=== PATIENT | female | born 1965 | race Caucasian/White ===

== ENCOUNTER 2021-07-02 18:49 | Inpatient (IN) | payer MEDICARE, OTHER ==
[~2021-07-02] VITALS: Ht 157.5 cm; Wt 51.9 kg
[2021-07-02] MEDS ORDERED: MAG HYDROX/AL HYDROX/SIMETH 30 ML UDC PO PRN (19:30)
[2021-07-02] MEDS ORDERED: ACETAMINOPHEN 325 MG TABLET PO PRN (19:30)
[2021-07-02] MEDS ORDERED: ONDANSETRON HCL/PF 4 MG/2 ML VIAL IVP PRN (19:30)
[2021-07-02] MEDS ORDERED: Z GUARD REMEDY 2 OZ OINT TP PRN (19:30)
[2021-07-02] MEDS ORDERED: MAGNESIUM HYDROXIDE 30 ML UDC PO PRN (19:30)
[2021-07-02] MEDS ORDERED: IV NS 0.9% 1,000 ML IV PRN (19:30)
--- NOTE | 2021-07-02 19:51 | NUR ---
REFUGIOID SWABBED, SENT TO LAB.
--- NOTE | 2021-07-02 19:51 | NUR ---
LAZARO JOHNSON, UNABLE TO COLLECT BLOOD, WILL CALL LAB TO DRAW.
[2021-07-02 20:13] LABS: HEMATOCRIT 38 % (33-45)
[2021-07-02 20:16] LABS: BASOPHILS # (AUTO) 0.1 K/uL (0.0-0.2); BASOPHILS % (AUTO) 1.1 % (0.0-2.0); EOSINOPHILS % (AUTO) 0.8 % (0.0-6.0); HEMOGLOBIN 12.5 g/dL (11.5-14.8); LYMPHOCYTES % (AUTO) 38.5 % (20.0-44.0); MEAN CORPUSCULAR HGB CONC 33 g/dl (31.0-36.0); MEAN CORPUSCULAR VOLUME 92 fL (82-100); MONOCYTES # (AUTO) 0.9 K/uL (0.1-1.30); MONOCYTES % (AUTO) 9.2 % (2.0-12.0); NEUTROPHILS # (AUTO) 5.2 K/uL (1.8-8.9); NEUTROPHILS % (AUTO) 50.4 % (43.0-81.0); PLATELET COUNT (AUTO) 264 K/uL (150-450); RED BLOOD CELL COUNT(AUTO) 4.18 MIL/uL (4.0-5.2); WHITE BLOOD COUNT (AUTO) 10.3 K/uL (4.3-11.0)
[2021-07-02 20:20] LABS: CALCIUM, SERUM 8.8 mg/dL (8.5-10.1); CREATININE 0.8 mg/dL (0.6-1.3); POTASSIUM 3.3 mmol/L (3.5-5.1)
--- NOTE | 2021-07-02 21:10 | NUR ---
BED 315-2
--- NOTE | 2021-07-02 21:37 | NUR ---
REPORT GIVEN TO MOLLY CRUZ.
--- NOTE | 2021-07-02 21:42 | NUR ---
PT WAS TRANSFERRED TO THIRD FLOOR INSTABLE CONDITION
[2021-07-02 22:00] VITALS: BP 112/63
--- NOTE | 2021-07-02 22:00 | NUR ---
RECEIVED PATIENT FROM ER VIA GURNEY. PATIENT IS AWAKE, A/O X 2, WITH SPECIAL NEEDS AND HAS NOT SHOWN SIGNS OF PAIN AND SOB. NOT IN DISTRESS. WITH IV ACCESS ON LEFT HAND, SALINE LOCKED, FLUSHED, PATENT AND INTACT. WILL CONTINUE TO MONITOR.
--- NOTE | 2021-07-02 22:05 | NUR ---
MS RN NOTES SKIN ASSESSMENT IS DONE. SAFETY MEASURES IN PLACED. CALL LIGHT WITHIN REACH. BED ON LOWEST, LOCKED POSITION.
--- NOTE | 2021-07-02 23:30 | NUR ---
RN NOTES PATIENT IS A FALL RISK AND TRYING TO GET OUT OF BED, GOT RESTRAINTS ORDER FROM DR. HAWLEY, ORDER NOTED AND CARRIED OUT
--- NOTE | 2021-07-03 00:30 | NUR ---
MS HORTICULTURAL THERAPIST NOTES STARTED IVF 0.9% NS 1,000ML AT 75ML/HR AT LEFT HAND.
[2021-07-03] MEDS ORDERED: DIVA-76 PO (04:13)
[2021-07-03] MEDS ORDERED: NA P133E RC (04:13)
[2021-07-03] MEDS ORDERED: OLAN2.5T3 PO (04:13)
[2021-07-03] MEDS ORDERED: LEVO50TA8 PO (04:13)
[2021-07-03] MEDS ORDERED: BISA-79 PR (04:17)
[2021-07-03] MEDS ORDERED: MAGN400O6 PO (04:58)
[2021-07-03] MEDS ORDERED: ACET-868 PO (05:00)
[2021-07-03 06:00] LABS: BASOPHILS % (AUTO) 0.7 % (0.0-2.0); EOSINOPHILS % (AUTO) 1.2 % (0.0-6.0); HEMATOCRIT 38 % (33-45); HEMOGLOBIN 12.9 g/dL (11.5-14.8); LYMPHOCYTES # (AUTO) 2.7 K/uL (0.8-4.8); LYMPHOCYTES % (AUTO) 37.3 % (20.0-44.0); MEAN CORPUSCULAR HGB CONC 34 g/dl (31.0-36.0); MEAN CORPUSCULAR VOLUME 90 fL (82-100); MONOCYTES # (AUTO) 0.7 K/uL (0.1-1.30); MONOCYTES % (AUTO) 9.9 % (2.0-12.0); NEUTROPHILS # (AUTO) 3.6 K/uL (1.8-8.9); NEUTROPHILS % (AUTO) 50.9 % (43.0-81.0); PLATELET COUNT (AUTO) 249 K/uL (150-450); WHITE BLOOD COUNT (AUTO) 7.1 K/uL (4.3-11.0)
--- NOTE | 2021-07-03 06:00 | NUR ---
RN NOTES GOT A SITTER ORDER FROM DR. HAWLEY, ORDER NOTED AND CARRIED OUT
[2021-07-03 06:10] LABS: CALCIUM, SERUM 8.1 mg/dL (8.5-10.1); CREATININE 0.7 mg/dL (0.6-1.3); MAGNESIUM 2.4 mg/dL (1.8-2.4); PHOSPHORUS 3.4 mg/dL (2.5-4.9)
--- NOTE | 2021-07-03 06:21 | NUR ---
RN NOTES NOTICED PATIENT IS ALWAYS SLEEPY, CHECKED PATIENT BLOOD [id number], GAVE CHOCOLATE PUDDING AND APPLE SAUCE
--- NOTE | 2021-07-03 06:22 | NUR ---
RN NOTES AWAKE, MORNING CARE RENDERED, BILATERAL UPPER EXTREMITIES HAS GOOD CIRCULATION, NOT IN DISTRESS, NO APIN NOTED, MORNING CARE RENDERED, [id number], PT. NEEDS ATTENDED
[2021-07-03 08:00] VITALS: BP 91/65
[2021-07-03] MEDS ORDERED: NA PHOS,M-B/NA PHOS,DI-BA 1 EA ENEMA RC PRN (08:00)
[2021-07-03] MEDS ORDERED: IV D5/0.45 NACL 1,000 ML IV PRN (09:00)
[2021-07-03] MEDS ORDERED: MAGNESIUM HYDROXIDE 30 ML UDC PO SCH (09:00)
[2021-07-03] MEDS: DIVALPROEX SODIUM 250 MG TABLET.DR PO SCH ×3 (10:22→17:00)
[2021-07-03] MEDS: LEVOTHYROXINE SODIUM 50 MCG TABLET PO SCH (10:22)
[2021-07-03 16:00] VITALS: BP 84/52
[2021-07-03 20:00] VITALS: BP 104/54
[2021-07-03] MEDS: OLANZAPINE 2.5 MG TABLET PO SCH (21:54)
[2021-07-04 06:01] LABS: BASOPHILS % (AUTO) 0.3 % (0.0-2.0); EOSINOPHILS % (AUTO) 1.3 % (0.0-6.0); HEMATOCRIT 41 % (33-45); HEMOGLOBIN 13.8 g/dL (11.5-14.8); LYMPHOCYTES # (AUTO) 3.3 K/uL (0.8-4.8); LYMPHOCYTES % (AUTO) 44.8 % (20.0-44.0); MEAN CORPUSCULAR HGB CONC 34 g/dl (31.0-36.0); MEAN CORPUSCULAR VOLUME 91 fL (82-100); MONOCYTES # (AUTO) 0.6 K/uL (0.1-1.30); MONOCYTES % (AUTO) 8.9 % (2.0-12.0); NEUTROPHILS # (AUTO) 3.2 K/uL (1.8-8.9); NEUTROPHILS % (AUTO) 44.7 % (43.0-81.0); PLATELET COUNT (AUTO) 242 K/uL (150-450); RED BLOOD CELL COUNT(AUTO) 4.53 MIL/uL (4.0-5.2); WHITE BLOOD COUNT (AUTO) 7.3 K/uL (4.3-11.0)
--- NOTE | 2021-07-04 06:30 | NUR ---
MS RN NOTES AWAKE & RESPONSIVE. NOT IN ANY DISTRESS. NO SOB NOTED. DENIES ANY PAIN OR DISCOMFORT AT THIS TIME. WITH IVF INFUSING WELL. AM CARE DONE. MONITORED ACCORDINGLY. CALL LIGHT WITHIN REACH. BED IN LOWEST POSITION. SR UP X 3 WITH BED ALARM ON FOR SAFETY. WILL ENDORSE TO NEXT SHIFT.
[2021-07-04 06:35] LABS: CALCIUM, SERUM 8.2 mg/dL (8.5-10.1); CREATININE 0.7 mg/dL (0.6-1.3); MAGNESIUM 2.3 mg/dL (1.8-2.4); POTASSIUM 4.3 mmol/L (3.5-5.1)
[2021-07-04 06:48] LABS: THYROID STIMULATING HORMONE 0.831 uIU/mL (0.358-3.74)
--- NOTE | 2021-07-04 07:56 | NUR ---
MS/RN OPENING NOTES RECEIVED PATIENT AWAKE ALERT AND ORIENTED X 1. PATIENT IS ON ROOM AIR SATURATING WELL. PATIENT IN NO APPARENT RESPIRATORY DISTRESS NOTED. NO COMPLAINED OF PAIN NOTED AT THIS TIME. WILL CONTINUE TO MONITOR.
[2021-07-04 08:00] VITALS: BP 103/64
[2021-07-04] MEDS: DIVALPROEX SODIUM 250 MG TABLET.DR PO SCH ×3 (08:46→17:18)
[2021-07-04] MEDS: LEVOTHYROXINE SODIUM 50 MCG TABLET PO SCH (08:46)
[2021-07-04 16:00] VITALS: BP 113/71
--- NOTE | 2021-07-04 16:15 | NUR ---
MS/RN NOTES ITS OKAY NO IV ACCESS PER DR. GILLESPIE PATIENT WILL DISCHARGE TOMORROW.
[2021-07-04] MEDS: ENSURE ENLIVE 237 ML LIQUID (VANILLA) PO SCH (17:18)
--- NOTE | 2021-07-04 19:25 | NUR ---
MS/RN CLOSING PATIENT IS ON BED ALERT AND ORIENTED X1. PATIENT IS ON ROOM AIR SATURATION 100%.. PATIENT IN NO APPARENT RESPIRATORY DISTRESS NOTED. NO COMPLAINED OF PAIN NOTED AT THIS TIME. SEEN AND EXAMINED BY MD WITH ORDERS MADE AND CARRIED OUT ALL DUE MEDICATIONS WAS GIVEN. NO IV ACCESS.SAFETY PRECAUTION WAS IN PLACED, BED IN LOWEST POSITION AND LOCKED X2. CALL LIGHT WITHIN REACH. PATIENT WITH 1:1 SITTER. WILL ENDORSED TO GROUP DYNAMICS INSTRUCTOR FOR BRIGID.
[2021-07-04 20:00] VITALS: BP 91/59
[2021-07-04] MEDS: OLANZAPINE 2.5 MG TABLET PO SCH (21:23)
[2021-07-04] MEDS ORDERED: MIRTAZAPINE 15 MG TABLET PO SCH (22:00)
[2021-07-05] VITALS: BP 106/62
[2021-07-05 03:26] VITALS: BP 162/61
--- NOTE | 2021-07-05 08:00 | NUR ---
RN OPENING NOTE PT IS AWAKE IN BED. ON RA WITH NO SOB OR RESPIRATORY DISTRESS PRESENT. A/O X1 AND [place] SPEAKING. NO COMPLAINT OF PAIN OR NAUSEA. NO S/S OF PAIN OR NAUSEA. NO SUPPORT TECHNICIAN PRESENT. NO EDEMA PRESENT. INCONTINENT WITH DIAPER PRESENT. ON BEDREST. ON REGULAR DIET. NO IV ACCESS, MD AND CN AWARE. NO IV MEDS ORDERED. LABS AND ORDERS REVIEWED. SAFETY MEASURES IN PLACE. SIDE RAILS RAISED. BED LOWERED. CALL LIGHT WITHIN REACH. WILL CONTINUE TO MONITOR.
[2021-07-05] MEDS: DIVALPROEX SODIUM 250 MG TABLET.DR PO SCH ×2 (08:42→12:03)
[2021-07-05] MEDS: LEVOTHYROXINE SODIUM 50 MCG TABLET PO SCH (08:43)
[2021-07-05] MEDS: ENSURE ENLIVE 237 ML LIQUID (VANILLA) PO SCH (08:44)
[2021-07-05] MEDS ORDERED: MIRT-121 PO (08:57)
--- NOTE | 2021-07-05 15:06 | NUR ---
PHYSICIAN ASSISTANT SURGERY NOTE PT DISCHARGED TO [facility], REPORT GIVEN TO MAURICIO BARNES. EXITCARE EDUCATION UTILIZED AND GIVEN TO EMT. BELONGINGS CHECKED AND GIVEN TO EMT. NO IV LINES PRESENT. ID BAND REMOVED. SKIN PROBLEMS PRESENT AND PICTURES TAKEN PRIOR TO D/C. PT REFUSED SACRAL SKIN ASSESSMENT ON D/C. PRESCRIPTIONS CHECKED AND MED RECON GIVEN TO EMT. PT TRANSPORTED VIA AMBULANCE ACCOMPANIED BY 2 CLEANING MATRON.
== END 2021-07-05 15:15 | DRG 640 ==
LOC: ER 19:12 → MED 21:18
PROVIDERS: ADMIT Internal Medicine; ATTEND Internal Medicine
DX: R62.7 Adult failure to thrive (principal); G93.41 Metabolic encephalopathy; J98.11 Atelectasis; G10 Huntington's disease; E16.2 Hypoglycemia, unspecified; F31.9 Bipolar disorder, unspecified; F41.9 Anxiety disorder, unspecified; Z20.822 Contact with and (suspected) exposure to COVID-19; Z86.16 Personal history of COVID-19; F25.9 Schizoaffective disorder, unspecified; G24.9 Dystonia, unspecified; E03.9 Hypothyroidism, unspecified; E87.6 Hypokalemia
CPT/HCPCS: 36415; 71045-TC; 80048-TC; 82962-TC; 83735-TC; 84100-TC; 84443-TC; 85025-TC; 87081-TC; 97112-TC; 97116-TC; 97530-TC; C9803; G0378; J7030

== ENCOUNTER 2022-11-18 17:07 | Inpatient (IN) | payer MEDICARE, OTHER ==
[~2022-11-18] VITALS: Ht 160 cm; Wt 45.4 kg
[~2022-11-18 17:07] MED LIST: ACET-868 PO; DIVA-76 PO; LEVO50TA8 PO; MAGN400O6 PO; MIRT-121 PO; NA P133E RC; OLAN2.5T3 PO
[2022-11-18] MEDS ORDERED: MIRT7.5T10 PO (18:17)
[2022-11-18] MEDS ORDERED: BENZ1TAB7 PO (18:17)
[2022-11-18] MEDS ORDERED: MAG30ORA GT (18:17)
[2022-11-18] MEDS ORDERED: AMIN30LI27 PO (18:17)
[2022-11-18] MEDS ORDERED: BISA10SU11 RC (18:17)
[2022-11-18] MEDS ORDERED: MULT-447 PO (18:17)
[2022-11-18] MEDS ORDERED: BUSP5TAB3 PO (18:17)
[2022-11-18] MEDS ORDERED: DOCU-141 PO (18:17)
[2022-11-18 18:29] LABS: BASOPHILS % (AUTO) 0.6 % (0.0-2.0); EOSINOPHILS % (AUTO) 1.5 % (0.0-6.0); HEMATOCRIT 38 % (33-45); HEMOGLOBIN 12.2 g/dL (11.5-14.8); LYMPHOCYTES # (AUTO) 3.1 K/uL (0.8-4.8); LYMPHOCYTES % (AUTO) 38.8 % (20.0-44.0); MEAN CORPUSCULAR HGB CONC 32 g/dl (31.0-36.0); MEAN CORPUSCULAR VOLUME 92 fL (82-100); MONOCYTES # (AUTO) 0.7 K/uL (0.1-1.30); MONOCYTES % (AUTO) 8.4 % (2.0-12.0); NEUTROPHILS # (AUTO) 4.1 K/uL (1.8-8.9); NEUTROPHILS % (AUTO) 50.7 % (43.0-81.0); PLATELET COUNT (AUTO) 228 K/uL (150-450); RED BLOOD CELL COUNT(AUTO) 4.13 MIL/uL (4.0-5.2); WHITE BLOOD COUNT (AUTO) 8.1 K/uL (4.3-11.0)
[2022-11-18 19:14] LABS: ALANINE AMINOTRANSFERASE 11 U/L (12-78); ALBUMIN 3.5 g/dL (3.4-5.0); ALCOHOL, BLOOD < 3 mg/dL (0-0); ALKALINE PHOSPHATASE 84 U/L (46-116); ASPARTATE AMINOTRANSFERASE 17 U/L (15-37); BILIRUBIN,DIRECT 0.1 mg/dL (0.0-0.2); BILIRUBIN,TOTAL 0.2 mg/dL (0.2-1.0); CALCIUM, SERUM 9.3 mg/dL (8.5-10.1); CARBON DIOXIDE 29 mmol/L (21-32); CHLORIDE 105 mmol/L (98-107); CREATININE 0.8 mg/dL (0.6-1.3); GLUCOSE 106 mg/dL (74-106); POTASSIUM 4.8 mmol/L (3.5-5.1); SODIUM SERUM 138 mmol/L (136-145); TOTAL PROTEIN, SERUM 6.9 g/dL (6.4-8.2); UREA NITROGEN, BLOOD 22 mg/dL (7-18)
[2022-11-18 19:29] LABS: ACETAMINOPHEN 0 ug/ml (10-30)
[2022-11-19 01:50] VITALS: BP 115/58
[2022-11-19] MEDS ORDERED: TEMAZEPAM 7.5 MG CAPSULE PO PRN (02:00)
[2022-11-19] MEDS ORDERED: MAGNESIUM HYDROXIDE 30 ML UDC PO PRN (02:00)
[2022-11-19] MEDS ORDERED: MAG HYDROX/AL HYDROX/SIMETH 30 ML UDC PO PRN (02:00)
[2022-11-19] MEDS ORDERED: BLOOD SUGAR DIAGNOSTIC 1 EACH STRIP IN ONE (02:00)
[2022-11-19] MEDS ORDERED: ACETAMINOPHEN 325 MG TABLET PO PRN (02:00)
[2022-11-19 08:00] VITALS: BP 98/64
[2022-11-19] MEDS ORDERED: DIVALPROEX SODIUM 250 MG TABLET.DR PO SCH (15:30)
[2022-11-19 16:00] VITALS: BP 93/61
[2022-11-19] MEDS ORDERED: BISACODYL SUPP (10 MG) 10 MG/SUPP.RECT SUPP.RECT RC PRN (16:30)
[2022-11-19] MEDS: DIVALPROEX SODIUM 125 MG CAP.SPRINK PO SCH ×3 (17:18→22:00)
[2022-11-19] MEDS: OLANZAPINE 2.5 MG TABLET PO SCH (17:18)
[2022-11-19] MEDS: DOCUSATE SODIUM 100 MG CAPSULE PO SCH (17:18)
[2022-11-19 20:10] VITALS: BP 91/45
[2022-11-19] MEDS ORDERED: DIVALPROEX SODIUM 500 MG TABLET.DR PO SCH (22:00)
[2022-11-20 08:00] VITALS: BP 99/64
[2022-11-20] MEDS: OLANZAPINE 2.5 MG TABLET PO SCH ×3 (08:21→17:30)
[2022-11-20] MEDS: MULTIVIT W/MINERALS 1 TAB TABLET PO SCH (08:21)
[2022-11-20] MEDS: LEVOTHYROXINE SODIUM 50 MCG TABLET PO SCH (08:21)
[2022-11-20] MEDS: DOCUSATE SODIUM 100 MG CAPSULE PO SCH ×2 (08:21→17:30)
[2022-11-20] MEDS: DIVALPROEX SODIUM 125 MG CAP.SPRINK PO SCH ×3 (08:22→21:47)
[2022-11-20 08:49] LABS: ALBUMIN 3.2 g/dL (3.4-5.0); BILIRUBIN,TOTAL 0.3 mg/dL (0.2-1.0); CALCIUM, SERUM 9.1 mg/dL (8.5-10.1); CREATININE 0.8 mg/dL (0.6-1.3); TOTAL PROTEIN, SERUM 6.4 g/dL (6.4-8.2)
[2022-11-20 08:58] LABS: CHOLESTEROL 179 mg/dL (<200); HDL CHOLESTEROL 71 mg/dL (40-60); LDL 97 mg/dL (0-99); TRIGLYCERIDES 53 mg/dL (30-150)
[2022-11-20] MEDS: ENSURE ENLIVE 237 ML LIQUID (VANILLA) PO SCH ×2 (12:35→17:29)
[2022-11-20 16:00] VITALS: BP 145/67
[2022-11-20 20:21] VITALS: BP 140/68
[2022-11-21 08:00] VITALS: BP 101/69
[2022-11-21] MEDS: ENSURE ENLIVE 237 ML LIQUID (VANILLA) PO SCH ×3 (08:10→16:24)
[2022-11-21] MEDS: LEVOTHYROXINE SODIUM 50 MCG TABLET PO SCH (08:12)
[2022-11-21] MEDS: OLANZAPINE 2.5 MG TABLET PO SCH ×2 (08:12→12:11)
[2022-11-21] MEDS: DIVALPROEX SODIUM 125 MG CAP.SPRINK PO SCH ×3 (08:12→21:38)
[2022-11-21] MEDS: MULTIVIT W/MINERALS 1 TAB TABLET PO SCH (08:13)
[2022-11-21] MEDS: DOCUSATE SODIUM 100 MG CAPSULE PO SCH ×2 (08:13→16:25)
[2022-11-21] MEDS: LORAZEPAM 0.5 MG TABLET PO PRN (13:06)
[2022-11-21] MEDS: OLANZAPINE 5 MG TABLET PO SCH (16:25)
[2022-11-21 17:52] VITALS: BP 117/61
[2022-11-21 20:00] VITALS: BP 120/62
[2022-11-22 08:00] VITALS: BP 100/60
[2022-11-22] MEDS: ENSURE ENLIVE 237 ML LIQUID (VANILLA) PO SCH ×3 (08:40→17:30)
[2022-11-22] MEDS: DIVALPROEX SODIUM 125 MG CAP.SPRINK PO SCH ×3 (08:43→21:39)
[2022-11-22] MEDS: MULTIVIT W/MINERALS 1 TAB TABLET PO SCH (08:43)
[2022-11-22] MEDS: LEVOTHYROXINE SODIUM 50 MCG TABLET PO SCH (08:43)
[2022-11-22] MEDS: DOCUSATE SODIUM 100 MG CAPSULE PO SCH ×2 (08:43→17:31)
[2022-11-22] MEDS: OLANZAPINE 2.5 MG TABLET PO SCH ×2 (08:43→12:54)
[2022-11-22] MEDS: LORAZEPAM 0.5 MG TABLET PO PRN (12:36)
[2022-11-22 16:00] VITALS: BP 103/52
[2022-11-22] MEDS: OLANZAPINE 5 MG TABLET PO SCH (17:31)
[2022-11-22 20:27] VITALS: BP 100/61
[2022-11-23] MEDS: LEVOTHYROXINE SODIUM 50 MCG TABLET PO SCH (07:56)
[2022-11-23] MEDS: DIVALPROEX SODIUM 125 MG CAP.SPRINK PO SCH ×3 (07:56→21:03)
[2022-11-23] MEDS: ENSURE ENLIVE 237 ML LIQUID (VANILLA) PO SCH ×3 (07:57→17:29)
[2022-11-23] MEDS: OLANZAPINE 2.5 MG TABLET PO SCH ×2 (07:57→13:24)
[2022-11-23 08:00] VITALS: BP 100/56
[2022-11-23] MEDS: DOCUSATE SODIUM 100 MG CAPSULE PO SCH ×2 (08:14→17:29)
[2022-11-23] MEDS: MULTIVIT W/MINERALS 1 TAB TABLET PO SCH (08:14)
[2022-11-23 16:00] VITALS: BP 90/52
[2022-11-23] MEDS: OLANZAPINE 5 MG TABLET PO SCH (17:29)
[2022-11-23 19:44] VITALS: BP 98/53
[2022-11-24 06:58] LABS: BASOPHILS % (AUTO) 0.6 % (0.0-2.0); HEMATOCRIT 35 % (33-45); HEMOGLOBIN 11.6 g/dL (11.5-14.8); LYMPHOCYTES # (AUTO) 3.3 K/uL (0.8-4.8); MEAN CORPUSCULAR HGB CONC 33 g/dl (31.0-36.0); MEAN CORPUSCULAR VOLUME 92 fL (82-100); MONOCYTES # (AUTO) 0.8 K/uL (0.1-1.30); MONOCYTES % (AUTO) 10.2 % (2.0-12.0); NEUTROPHILS # (AUTO) 3.7 K/uL (1.8-8.9); NEUTROPHILS % (AUTO) 46.2 % (43.0-81.0); PLATELET COUNT (AUTO) 206 K/uL (150-450); RED BLOOD CELL COUNT(AUTO) 3.86 MIL/uL (4.0-5.2)
[2022-11-24 07:30] LABS: BILIRUBIN,TOTAL 0.2 mg/dL (0.2-1.0); CALCIUM, SERUM 8.8 mg/dL (8.5-10.1); CREATININE 0.8 mg/dL (0.6-1.3); POTASSIUM 4.7 mmol/L (3.5-5.1); TOTAL PROTEIN, SERUM 6.2 g/dL (6.4-8.2)
[2022-11-24 08:00] VITALS: BP 101/52
[2022-11-24] MEDS: DIVALPROEX SODIUM 125 MG CAP.SPRINK PO SCH ×3 (08:02→21:07)
[2022-11-24] MEDS: DOCUSATE SODIUM 100 MG CAPSULE PO SCH ×2 (08:02→16:32)
[2022-11-24] MEDS: LEVOTHYROXINE SODIUM 50 MCG TABLET PO SCH (08:02)
[2022-11-24] MEDS: MULTIVIT W/MINERALS 1 TAB TABLET PO SCH (08:03)
[2022-11-24] MEDS: ENSURE ENLIVE 237 ML LIQUID (VANILLA) PO SCH ×3 (08:03→17:06)
[2022-11-24] MEDS: OLANZAPINE 2.5 MG TABLET PO SCH ×2 (08:03→12:24)
[2022-11-24 16:00] VITALS: BP 130/75
[2022-11-24] MEDS: OLANZAPINE 5 MG TABLET PO SCH (16:32)
[2022-11-24 20:12] VITALS: BP 97/57
[2022-11-25] MEDS: LEVOTHYROXINE SODIUM 50 MCG TABLET PO SCH (07:40)
[2022-11-25] MEDS: OLANZAPINE 2.5 MG TABLET PO SCH ×2 (07:43→12:05)
[2022-11-25] MEDS: ENSURE ENLIVE 237 ML LIQUID (VANILLA) PO SCH ×2 (07:43→11:43)
[2022-11-25] MEDS: DIVALPROEX SODIUM 125 MG CAP.SPRINK PO SCH ×2 (07:43→12:04)
[2022-11-25 08:00] VITALS: BP 98/53
[2022-11-25] MEDS: MULTIVIT W/MINERALS 1 TAB TABLET PO SCH (08:36)
[2022-11-25] MEDS: DOCUSATE SODIUM 100 MG CAPSULE PO SCH (08:36)
== END 2022-11-25 13:40 | DRG 885 ==
LOC: ER 18:01 → GPS 23:12
PROVIDERS: ADMIT Psychiatry & Neurology Psychosomatic Medicine; ATTEND Nurse Practitioner Acute Care
DX: F25.0 Schizoaffective disorder, bipolar type (principal); N17.9 Acute kidney failure, unspecified; G93.41 Metabolic encephalopathy; R53.2 Functional quadriplegia; G10 Huntington's disease; D68.59 Other primary thrombophilia; F29 Unspecified psychosis not due to a substance or known physiological condition; F41.9 Anxiety disorder, unspecified; Z20.822 Contact with and (suspected) exposure to COVID-19; R41.9 Unspecified symptoms and signs involving cognitive functions and awareness; Z86.16 Personal history of COVID-19; Z79.899 Other long term (current) drug therapy; E03.9 Hypothyroidism, unspecified; Z73.6 Limitation of activities due to disability; E86.0 Dehydration
CPT/HCPCS: 36415; 80048-TC; 80053-TC; 80061-TC; 80076-TC; 82962-TC; 84443-TC; 85025-TC; 87081-TC; 97116-TC; 97530-TC; C9803; G0480

== ENCOUNTER 2023-06-17 13:11 | Inpatient (IN) | payer MEDICARE, OTHER ==
[~2023-06-17] VITALS: Ht 152.4 cm; Wt 54.0 kg
[~2023-06-17 13:11] MED LIST changes: +AMIN30LI27 PO; +BISA10SU11 RC; -DIVA-76 PO; +DOCU-141 PO; +MAG30ORA GT; -MIRT-121 PO; +MULT-447 PO; -OLAN2.5T3 PO
[2023-06-17 13:47] LABS: BASOPHILS # (AUTO) 0.1 K/uL (0.0-0.2); EOSINOPHILS # (AUTO) 0.1 K/uL (0.0-0.7); HEMATOCRIT 41 % (33-45); HEMOGLOBIN 13.4 g/dL (11.5-14.8); LYMPHOCYTES # (AUTO) 2.3 K/uL (0.8-4.8); LYMPHOCYTES % (AUTO) 24.6 % (20.0-44.0); MEAN CORPUSCULAR HEMOGLOBIN 30 PG (26.0-33.0); MEAN CORPUSCULAR HGB CONC 33 g/dl (31.0-36.0); MEAN CORPUSCULAR VOLUME 90 fL (82-100); MONOCYTES # (AUTO) 0.8 K/uL (0.1-1.30); MONOCYTES % (AUTO) 8.4 % (2.0-12.0); PLATELET COUNT (AUTO) 164 K/uL (150-450); RED BLOOD CELL COUNT(AUTO) 4.53 MIL/uL (4.0-5.2); WHITE BLOOD COUNT (AUTO) 9.2 K/uL (4.3-11.0)
[2023-06-17 13:55] LABS: APPEARANCE,URINE CLEAR (CLEAR); BILIRUBIN,URINE NEGATIVE (NEGATIVE); BLOOD, URINE TRACE-INTA Ery/uL (NEGATIVE); COLOR,URINE YELLOW (YELLOW); KETONES,URINE NEGATIVE (NEGATIVE); LEUKOCYTE ESTERASE ,URINE NEGATIVE (NEGATIVE); NITRITE, URINE NEGATIVE (NEGATIVE); PH,URINE 6.5 (5.0-8.0); PROTEIN,URINE NEGATIVE (NEGATIVE); UGLUCOSE NEGATIVE (NEGATIVE); UROBILINOGEN,URINE 0.2 EU/dL (0.2)
[2023-06-17 14:02] LABS: CALCIUM, SERUM 9.5 mg/dL (8.5-10.1); CREATININE 0.5 mg/dL (0.6-1.3); POTASSIUM 4.4 mmol/L (3.5-5.1)
[2023-06-17 14:08] LABS: ALBUMIN 3.5 g/dL (3.4-5.0); BILIRUBIN,TOTAL 0.3 mg/dL (0.2-1.0)
[2023-06-17] MEDS ORDERED: ZOLPIDEM TARTRATE 5 MG TABLET PO PRN (14:30)
[2023-06-17] MEDS ORDERED: ONDANSETRON HCL/PF 4 MG/2 ML VIAL IVP PRN (14:30)
[2023-06-17] MEDS ORDERED: MAGNESIUM HYDROXIDE 30 ML UDC PO PRN (14:30)
[2023-06-17] MEDS ORDERED: ACETAMINOPHEN 325 MG TABLET PO PRN (14:30)
[2023-06-17] MEDS ORDERED: MAG HYDROX/AL HYDROX/SIMETH 30 ML UDC PO PRN (14:30)
[2023-06-17] MEDS ORDERED: Z GUARD REMEDY 4 OZ OINT TP PRN (14:30)
[2023-06-17 16:00] VITALS: BP 107/58; TEMP 97.6; O2SAT 100
[2023-06-17] MEDS: ENOXAPARIN SODIUM 40 MG/0.4 ML DISP.SYRIN SQ SCH (16:51)
[2023-06-17] MEDS: IV D5/0.45 NACL 1,000 ML IV PRN (17:03)
[2023-06-18 06:12] LABS: BASOPHILS # (AUTO) 0.1 K/uL (0.0-0.2); BASOPHILS % (AUTO) 0.8 % (0.0-2.0); EOSINOPHILS # (AUTO) 0.1 K/uL (0.0-0.7); EOSINOPHILS % (AUTO) 1.6 % (0.0-6.0); HEMATOCRIT 37 % (33-45); HEMOGLOBIN 12.1 g/dL (11.5-14.8); LYMPHOCYTES # (AUTO) 2.4 K/uL (0.8-4.8); LYMPHOCYTES % (AUTO) 27.9 % (20.0-44.0); MEAN CORPUSCULAR HEMOGLOBIN 30 PG (26.0-33.0); MEAN CORPUSCULAR HGB CONC 33 g/dl (31.0-36.0); MEAN CORPUSCULAR VOLUME 90 fL (82-100); MONOCYTES % (AUTO) 11.9 % (2.0-12.0); NEUTROPHILS % (AUTO) 57.8 % (43.0-81.0); PLATELET COUNT (AUTO) 172 K/uL (150-450); RED CELL DISTRIBUTION WIDTH 14.5 % (11.5-15.0); WHITE BLOOD COUNT (AUTO) 8.6 K/uL (4.3-11.0)
[2023-06-18 06:29] LABS: ALBUMIN 2.7 g/dL (3.4-5.0); BILIRUBIN,TOTAL 0.2 mg/dL (0.2-1.0); CALCIUM, SERUM 8.9 mg/dL (8.5-10.1); CREATININE 0.5 mg/dL (0.6-1.3); MAGNESIUM 2.3 mg/dL (1.8-2.4); PHOSPHORUS 3.6 mg/dL (2.5-4.9); POTASSIUM 4.3 mmol/L (3.5-5.1); TOTAL PROTEIN, SERUM 6.4 g/dL (6.4-8.2)
[2023-06-18 07:00] VITALS: BP 102/70; TEMP 97.8; O2SAT 99
[2023-06-18] MEDS: ENOXAPARIN SODIUM 40 MG/0.4 ML DISP.SYRIN SQ SCH (08:53)
[2023-06-18] MEDS: IV D5/0.45 NACL 1,000 ML IV PRN (11:36)
[2023-06-18] MEDS: ENSURE ENLIVE CHOC 237 ML CAN PO SCH (16:15)
[2023-06-18 19:00] VITALS: BP 96/59; TEMP 98.3; O2SAT 97
[2023-06-18 20:02] VITALS: BP 96/59; TEMP 98.3; O2SAT 97
[2023-06-19] MEDS: IV D5/0.45 NACL 1,000 ML IV PRN ×2 (01:37→22:24)
[2023-06-19 02:42] LABS: APPEARANCE,URINE SLIGHTLY CLOUDY (CLEAR); BILIRUBIN,URINE NEGATIVE (NEGATIVE); BLOOD, URINE 3+ Ery/uL (NEGATIVE); COLOR,URINE DARK YELLOW (YELLOW); KETONES,URINE NEGATIVE (NEGATIVE); LEUKOCYTE ESTERASE ,URINE 1+ (NEGATIVE); NITRITE, URINE NEGATIVE (NEGATIVE); PROTEIN,URINE 2+ mg/dl (NEGATIVE); UGLUCOSE NEGATIVE (NEGATIVE); UROBILINOGEN,URINE 0.2 EU/dL (0.2)
[2023-06-19 02:58] LABS: ADD URINE CULTURE YES; BACTERIA,URINE Few /HPF (None Seen); MUCUS,URINE Moderate /LPF (None Seen); RBC,URINE TOO NUMEROUS TO COUN /HPF (0-2); SQUAMOUS EPITHELIAL CELL,UR 0-2 /HPF (None Seen)
[2023-06-19 08:00] VITALS: BP 109/64; TEMP 98.6; O2SAT 96
[2023-06-19] MEDS: ENSURE ENLIVE CHOC 237 ML CAN PO SCH ×2 (08:00→18:49)
[2023-06-19] MEDS ORDERED: MAG-5 PO (10:10)
[2023-06-19] MEDS ORDERED: DIVA-78 PO (10:10)
[2023-06-19] MEDS ORDERED: BENZ0.5T43 PO (10:10)
[2023-06-19] MEDS ORDERED: OLAN5TAB3 PO (10:10)
[2023-06-19] MEDS ORDERED: OLAN7.5T3 PO (10:10)
[2023-06-19] MEDS ORDERED: DIVA125T32 PO (10:10)
[2023-06-19] MEDS: CEFTRIAXONE 1 G in IV D5W 50 ML IV SCH (10:30)
[2023-06-19] MEDS: ENOXAPARIN SODIUM 40 MG/0.4 ML DISP.SYRIN SQ SCH (10:31)
[2023-06-19 16:00] VITALS: BP_SYST 90; BP_SYST 94; BP_DIAS 52; BP_DIAS 53; TEMP 98; TEMP 99.2; O2SAT 96
[2023-06-19 20:00] VITALS: BP 118/70; TEMP 99.8; O2SAT 95
[2023-06-20 07:00] VITALS: BP 106/76; TEMP 98.6; O2SAT 98
[2023-06-20] MEDS: ENSURE ENLIVE CHOC 237 ML CAN PO SCH ×2 (08:47→16:41)
[2023-06-20] MEDS: CEFTRIAXONE 1 G in IV D5W 50 ML IV SCH (08:47)
[2023-06-20] MEDS: ENOXAPARIN SODIUM 40 MG/0.4 ML DISP.SYRIN SQ SCH (09:19)
[2023-06-20] MEDS: IV D5/0.45 NACL 1,000 ML IV PRN (10:44)
[2023-06-20 16:00] VITALS: BP 97/58; TEMP 97.3; O2SAT 96
[2023-06-20 20:00] VITALS: BP 108/68; TEMP 98; O2SAT 95
[2023-06-21] MEDS: IV D5/0.45 NACL 1,000 ML IV PRN (01:55)
[2023-06-21 08:00] VITALS: BP 94/64; TEMP 95.9; TEMP 97.9
[2023-06-21] MEDS: ENSURE ENLIVE CHOC 237 ML CAN PO SCH ×2 (08:14→17:00)
[2023-06-21] MEDS: ENOXAPARIN SODIUM 40 MG/0.4 ML DISP.SYRIN SQ SCH (08:15)
[2023-06-21] MEDS: CEFTRIAXONE 1 G in IV D5W 50 ML IV SCH (08:57)
== END 2023-06-21 16:47 | DRG 641 ==
LOC: ER 13:28 → MED 14:26
PROVIDERS: ADMIT Internal Medicine; ATTEND Internal Medicine
DX: R62.7 Adult failure to thrive (principal); G10 Huntington's disease; G93.49 Other encephalopathy; N39.0 Urinary tract infection, site not specified; Z86.16 Personal history of COVID-19; Z86.59 Personal history of other mental and behavioral disorders; Z79.899 Other long term (current) drug therapy; E03.9 Hypothyroidism, unspecified; Z79.890 Hormone replacement therapy
CPT/HCPCS: 36415; 71045-TC; 80048-TC; 80053-TC; 80076-TC; 81001; 83735-TC; 84100-TC; 85025-TC; 87081-TC; 87086-TC; 92526; 92611-TC; A4223; G0378; J0696; J1650; J3490; J7042; J7060

== ENCOUNTER 2023-11-19 23:49 | Inpatient (IN) | payer MEDICARE, OTHER ==
[~2023-11-19] VITALS: Ht 162.6 cm; Wt 58.5 kg
[~2023-11-19 23:49] MED LIST changes: -AMIN30LI27 PO; +BENZ0.5T43 PO; +DIVA-78 PO; +DIVA125T32 PO; +MAG-5 PO; -MAG30ORA GT; -MAGN400O6 PO; -NA P133E RC; +OLAN5TAB3 PO; +OLAN7.5T3 PO
[2023-11-20 00:43] LABS: BASOPHILS % (AUTO) 0.4 % (0.0-2.0); EOSINOPHILS # (AUTO) 0.2 K/uL (0.0-0.7); EOSINOPHILS % (AUTO) 2.3 % (0.0-6.0); HEMATOCRIT 35 % (33-45); HEMOGLOBIN 11.7 g/dL (11.5-14.8); LYMPHOCYTES # (AUTO) 2.9 K/uL (0.8-4.8); MEAN CORPUSCULAR HEMOGLOBIN 30 PG (26.0-33.0); MEAN CORPUSCULAR HGB CONC 33 g/dl (31.0-36.0); MEAN CORPUSCULAR VOLUME 89 fL (82-100); MONOCYTES # (AUTO) 0.7 K/uL (0.1-1.30); MONOCYTES % (AUTO) 9.9 % (2.0-12.0); NEUTROPHILS # (AUTO) 3.2 K/uL (1.8-8.9); NEUTROPHILS % (AUTO) 45.4 % (43.0-81.0); PLATELET COUNT (AUTO) 184 K/uL (150-450); RED BLOOD CELL COUNT(AUTO) 3.95 MIL/uL (4.0-5.2); RED CELL DISTRIBUTION WIDTH 14.1 % (11.5-15.0)
[2023-11-20 00:59] LABS: CALCIUM, SERUM 8.9 mg/dL (8.5-10.1); CARBON DIOXIDE 25 mmol/L (21-32); CHLORIDE 105 mmol/L (98-107); CREATININE 0.6 mg/dL (0.6-1.3); GLUCOSE 96 mg/dL (74-106); POTASSIUM 4.3 mmol/L (3.5-5.1); SODIUM SERUM 136 mmol/L (136-145); UREA NITROGEN, BLOOD 15 mg/dL (7-18)
[2023-11-20 01:03] LABS: ALANINE AMINOTRANSFERASE 15 U/L (12-78); ALKALINE PHOSPHATASE 128 U/L (46-116); ASPARTATE AMINOTRANSFERASE 23 U/L (15-37); BILIRUBIN,TOTAL 0.2 mg/dL (0.2-1.0); TOTAL PROTEIN, SERUM 6.7 g/dL (6.4-8.2)
[2023-11-20 01:08] LABS: ACETAMINOPHEN <10 ug/ml (10-30); SALICYLATE 1.8 mg/dL (2.8-20.0)
[2023-11-20 05:07] LABS: APPEARANCE,URINE SLIGHTLY CLOUDY (CLEAR); BILIRUBIN,URINE NEGATIVE (NEGATIVE); BLOOD, URINE TRACE-INTA Ery/uL (NEGATIVE); COLOR,URINE YELLOW (YELLOW); KETONES,URINE NEGATIVE (NEGATIVE); LEUKOCYTE ESTERASE ,URINE NEGATIVE (NEGATIVE); NITRITE, URINE NEGATIVE (NEGATIVE); PH,URINE 5.5 (5.0-8.0); PROTEIN,URINE NEGATIVE (NEGATIVE); UGLUCOSE NEGATIVE (NEGATIVE); UROBILINOGEN,URINE 0.2 EU/dL (0.2)
[2023-11-20 05:08] LABS: ADD URINE CULTURE NO; BACTERIA,URINE Rare /HPF (None Seen); RBC,URINE 0-2 /HPF (0-2); SQUAMOUS EPITHELIAL CELL,UR Few /HPF (None Seen); WBC,URINE 0-2 /HPF (0-3)
[2023-11-20 05:15] LABS: AMPHETAMINE, URINE NEGATIVE (NEGATIVE); BARBITURATE, URINE NEGATIVE (NEGATIVE); BENZODIAZEPINE, URINE NEGATIVE (NEGATIVE); CANNABINOID, URINE NEGATIVE (NEGATIVE); COCCAINE, URINE NEGATIVE (NEGATIVE); OPIATE, URINE NEGATIVE (NEGATIVE); PHENCYCLIDINE SCREEN,URINE NEGATIVE (NEGATIVE)
[2023-11-20] MEDS ORDERED: MAGN400O6 PO (07:08)
[2023-11-20] MEDS ORDERED: AMIN30LI27 PO (07:08)
[2023-11-20] MEDS ORDERED: BLOOD SUGAR DIAGNOSTIC 1 EACH STRIP IN ONE (09:30)
[2023-11-20] MEDS ORDERED: MAG HYDROX/AL HYDROX/SIMETH 30 ML UDC PO PRN ×2 (09:30→16:00)
[2023-11-20] MEDS ORDERED: TEMAZEPAM 7.5 MG CAPSULE PO PRN (09:30)
[2023-11-20] MEDS ORDERED: ACETAMINOPHEN 325 MG TABLET PO PRN ×2 (09:30→16:00)
[2023-11-20] MEDS ORDERED: MAGNESIUM HYDROXIDE 30 ML UDC PO PRN ×2 (09:30→16:00)
[2023-11-20 10:06] VITALS: BP 107/71; TEMP 97.5; O2SAT 98
[2023-11-20] MEDS ORDERED: Z GUARD REMEDY 4 OZ OINT TP PRN (14:30)
[2023-11-20 16:00] VITALS: BP 100/68; TEMP 97.6; O2SAT 98
[2023-11-20] MEDS ORDERED: BISACODYL SUPP (10 MG) 10 MG/SUPP.RECT SUPP.RECT RC PRN (16:00)
[2023-11-20] MEDS: DOCUSATE SODIUM 100 MG CAPSULE PO SCH (16:43)
[2023-11-20] MEDS: DIVALPROEX SODIUM 125 MG CAP.SPRINK PO SCH (16:43)
[2023-11-20] MEDS: LEVOTHYROXINE SODIUM 50 MCG TABLET PO SCH (16:43)
[2023-11-20] MEDS ORDERED: DIVALPROEX SODIUM 500 MG TABLET.DR PO SCH (17:00)
[2023-11-20 20:00] VITALS: BP 104/68; TEMP 98.1; O2SAT 97
[2023-11-20] MEDS: Z GUARD REMEDY 4 OZ OINT TP SCH (21:07)
[2023-11-20] MEDS: OLANZAPINE 10 MG TABLET PO SCH (22:06)
[2023-11-21 08:00] VITALS: BP 92/67; TEMP 97.8; O2SAT 97
[2023-11-21] MEDS: LEVOTHYROXINE SODIUM 50 MCG TABLET PO SCH (08:07)
[2023-11-21] MEDS: DOCUSATE SODIUM 100 MG CAPSULE PO SCH ×2 (08:07→17:12)
[2023-11-21] MEDS: DIVALPROEX SODIUM 125 MG CAP.SPRINK PO SCH ×2 (08:07→17:12)
[2023-11-21 08:16] LABS: ALBUMIN 2.8 g/dL (3.4-5.0); BILIRUBIN,TOTAL 0.2 mg/dL (0.2-1.0); CREATININE 0.6 mg/dL (0.6-1.3); POTASSIUM 3.9 mmol/L (3.5-5.1); TOTAL PROTEIN, SERUM 6.6 g/dL (6.4-8.2)
[2023-11-21 08:23] LABS: CHOLESTEROL 147 mg/dL (<200); HDL CHOLESTEROL 57 mg/dL (40-60); LDL 70 mg/dL (0-99); TRIGLYCERIDES 57 mg/dL (30-150)
[2023-11-21] MEDS: Z GUARD REMEDY 4 OZ OINT TP SCH ×2 (09:41→21:43)
[2023-11-21] MEDS: MULTIVITAMINS,THERAGRAN 1 UDTAB TABLET PO SCH (09:41)
[2023-11-21] MEDS: OLANZAPINE 2.5 MG TABLET PO SCH (09:41)
[2023-11-21] MEDS: BENZTROPINE MESYLATE (1 MG) 1 MG TABLET PO SCH ×2 (09:41→17:12)
[2023-11-21] MEDS: PROSOURCE / PROSTAT (PYXIS) 30 ML UDC PO SCH (09:41)
[2023-11-21] MEDS: clonazePAM 0.5 MG TABLET PO PRN (15:10)
[2023-11-21 16:00] VITALS: BP 104/78; TEMP 97.8; O2SAT 98
[2023-11-21 21:17] VITALS: BP 102/66; TEMP 98.2; O2SAT 94
[2023-11-21] MEDS: OLANZAPINE 10 MG TABLET PO SCH (21:47)
[2023-11-22 08:00] VITALS: BP 100/69; TEMP 97.7; O2SAT 99
[2023-11-22] MEDS: MULTIVITAMINS,THERAGRAN 1 UDTAB TABLET PO SCH (09:30)
[2023-11-22] MEDS: OLANZAPINE 2.5 MG TABLET PO SCH (09:31)
[2023-11-22] MEDS: DIVALPROEX SODIUM 125 MG CAP.SPRINK PO SCH ×2 (09:31→17:09)
[2023-11-22] MEDS: DOCUSATE SODIUM 100 MG CAPSULE PO SCH ×2 (09:32→17:09)
[2023-11-22] MEDS: BENZTROPINE MESYLATE (1 MG) 1 MG TABLET PO SCH ×2 (09:32→17:10)
[2023-11-22] MEDS: LEVOTHYROXINE SODIUM 50 MCG TABLET PO SCH (09:32)
[2023-11-22] MEDS: Z GUARD REMEDY 4 OZ OINT TP SCH ×2 (09:59→20:45)
[2023-11-22] MEDS: PROSOURCE / PROSTAT (PYXIS) 30 ML UDC PO SCH (10:01)
[2023-11-22] MEDS: clonazePAM 0.5 MG TABLET PO PRN ×3 (10:09→20:44)
[2023-11-22] MEDS ORDERED: HALOPERIDOL LACTATE INJ 5 MG/ML VIAL IM ONE ×2 (15:30→16:00)
[2023-11-22 16:00] VITALS: BP 95/68; TEMP 97.1; O2SAT 95
[2023-11-22 19:50] VITALS: BP 110/71; TEMP 97.7; O2SAT 97
[2023-11-22] MEDS: OLANZAPINE 10 MG TABLET PO SCH (21:08)
[2023-11-23 08:00] VITALS: BP 100/64; TEMP 98.6; O2SAT 98
[2023-11-23] MEDS: OLANZAPINE 2.5 MG TABLET PO SCH (09:34)
[2023-11-23] MEDS: DOCUSATE SODIUM 100 MG CAPSULE PO SCH ×2 (09:34→16:40)
[2023-11-23] MEDS: DIVALPROEX SODIUM 125 MG CAP.SPRINK PO SCH ×2 (09:34→16:41)
[2023-11-23] MEDS: BENZTROPINE MESYLATE (1 MG) 1 MG TABLET PO SCH ×2 (09:34→16:40)
[2023-11-23] MEDS: PROSOURCE / PROSTAT (PYXIS) 30 ML UDC PO SCH (09:34)
[2023-11-23] MEDS: MULTIVITAMINS,THERAGRAN 1 UDTAB TABLET PO SCH (09:34)
[2023-11-23] MEDS: LEVOTHYROXINE SODIUM 50 MCG TABLET PO SCH (09:34)
[2023-11-23] MEDS: Z GUARD REMEDY 4 OZ OINT TP SCH ×2 (09:35→21:01)
[2023-11-23] MEDS ORDERED: LORAZEPAM 0.5 MG TABLET PO PRN (11:30)
[2023-11-23 16:00] VITALS: BP 99/69; TEMP 98.7; O2SAT 98
[2023-11-23 21:27] VITALS: BP 112/52; TEMP 98.7; O2SAT 95
[2023-11-23] MEDS: OLANZAPINE 10 MG TABLET PO SCH (21:37)
[2023-11-24] MEDS: LEVOTHYROXINE SODIUM 50 MCG TABLET PO SCH (07:30)
[2023-11-24 08:00] VITALS: BP 97/69; TEMP 98.7; O2SAT 100
[2023-11-24] MEDS: DOCUSATE SODIUM 100 MG CAPSULE PO SCH ×2 (09:00→18:16)
[2023-11-24] MEDS: DIVALPROEX SODIUM 125 MG CAP.SPRINK PO SCH ×2 (09:00→18:16)
[2023-11-24] MEDS: OLANZAPINE 2.5 MG TABLET PO SCH ×2 (09:00→21:49)
[2023-11-24] MEDS: PROSOURCE / PROSTAT (PYXIS) 30 ML UDC PO SCH (09:00)
[2023-11-24] MEDS: MULTIVITAMINS,THERAGRAN 1 UDTAB TABLET PO SCH (09:00)
[2023-11-24] MEDS: BENZTROPINE MESYLATE (1 MG) 1 MG TABLET PO SCH ×2 (09:00→18:16)
[2023-11-24] MEDS: Z GUARD REMEDY 4 OZ OINT TP SCH ×2 (11:31→21:46)
[2023-11-24 16:00] VITALS: BP 105/69; TEMP 98.1; O2SAT 96
[2023-11-24 20:29] VITALS: BP 93/68; TEMP 98.1; O2SAT 96
[2023-11-25 08:00] VITALS: BP 106/68; TEMP 98; O2SAT 95
[2023-11-25 08:10] LABS: BASOPHILS % (AUTO) 0.5 % (0.0-2.0); EOSINOPHILS # (AUTO) 0.1 K/uL (0.0-0.7); EOSINOPHILS % (AUTO) 2.2 % (0.0-6.0); HEMATOCRIT 37 % (33-45); HEMOGLOBIN 12.1 g/dL (11.5-14.8); LYMPHOCYTES # (AUTO) 2.6 K/uL (0.8-4.8); LYMPHOCYTES % (AUTO) 41.6 % (20.0-44.0); MEAN CORPUSCULAR HEMOGLOBIN 29 PG (26.0-33.0); MEAN CORPUSCULAR HGB CONC 33 g/dl (31.0-36.0); MEAN CORPUSCULAR VOLUME 88 fL (82-100); MONOCYTES # (AUTO) 0.7 K/uL (0.1-1.30); MONOCYTES % (AUTO) 11.8 % (2.0-12.0); NEUTROPHILS # (AUTO) 2.8 K/uL (1.8-8.9); NEUTROPHILS % (AUTO) 43.9 % (43.0-81.0); PLATELET COUNT (AUTO) 236 K/uL (150-450); RED BLOOD CELL COUNT(AUTO) 4.15 MIL/uL (4.0-5.2); RED CELL DISTRIBUTION WIDTH 14.1 % (11.5-15.0); WHITE BLOOD COUNT (AUTO) 6.3 K/uL (4.3-11.0)
[2023-11-25] MEDS: LEVOTHYROXINE SODIUM 50 MCG TABLET PO SCH (08:21)
[2023-11-25] MEDS: BENZTROPINE MESYLATE (1 MG) 1 MG TABLET PO SCH ×2 (08:21→16:41)
[2023-11-25] MEDS: DOCUSATE SODIUM 100 MG CAPSULE PO SCH ×2 (08:22→16:41)
[2023-11-25] MEDS: DIVALPROEX SODIUM 125 MG CAP.SPRINK PO SCH ×2 (08:23→16:41)
[2023-11-25] MEDS: MULTIVITAMINS,THERAGRAN 1 UDTAB TABLET PO SCH (08:23)
[2023-11-25] MEDS: PROSOURCE / PROSTAT (PYXIS) 30 ML UDC PO SCH (08:24)
[2023-11-25] MEDS ORDERED: OLANZAPINE 2.5 MG TABLET PO SCH (09:00)
[2023-11-25] MEDS: Z GUARD REMEDY 4 OZ OINT TP SCH ×2 (09:52→20:46)
[2023-11-25 16:00] VITALS: BP 100/65; TEMP 99; O2SAT 100
[2023-11-25] MEDS: OLANZAPINE 2.5 MG TABLET PO SCH ×2 (16:40→23:16)
[2023-11-25 19:32] LABS: THYROID STIMULATING HORMONE 0.474 uIU/mL (0.358-3.74)
[2023-11-25 20:00] VITALS: BP 94/61; TEMP 98.7; O2SAT 96
[2023-11-26 08:00] VITALS: BP 105/78; TEMP 98.4; O2SAT 97
[2023-11-26] MEDS: LEVOTHYROXINE SODIUM 50 MCG TABLET PO SCH (08:25)
[2023-11-26] MEDS: DIVALPROEX SODIUM 125 MG CAP.SPRINK PO SCH ×2 (08:25→16:20)
[2023-11-26] MEDS: MULTIVITAMINS,THERAGRAN 1 UDTAB TABLET PO SCH (08:25)
[2023-11-26] MEDS: DOCUSATE SODIUM 100 MG CAPSULE PO SCH ×2 (08:26→17:00)
[2023-11-26] MEDS: Z GUARD REMEDY 4 OZ OINT TP SCH ×2 (08:26→21:01)
[2023-11-26] MEDS: OLANZAPINE 2.5 MG TABLET PO SCH ×4 (08:26→21:43)
[2023-11-26] MEDS: PROSOURCE / PROSTAT (PYXIS) 30 ML UDC PO SCH (08:26)
[2023-11-26] MEDS: BENZTROPINE MESYLATE (1 MG) 1 MG TABLET PO SCH ×2 (08:26→16:21)
[2023-11-26 16:00] VITALS: BP 108/68; TEMP 97.6; O2SAT 98
[2023-11-26 20:00] VITALS: BP 115/69; TEMP 98.5; O2SAT 96
[2023-11-27 04:07] LABS: FOLIC ACID > 20.0 ng/mL (>3.0)
[2023-11-27 08:00] VITALS: BP 119/63; TEMP 98; O2SAT 98
[2023-11-27] MEDS: DOCUSATE SODIUM 100 MG CAPSULE PO SCH ×2 (08:19→17:37)
[2023-11-27] MEDS: MULTIVITAMINS,THERAGRAN 1 UDTAB TABLET PO SCH (08:19)
[2023-11-27] MEDS: BENZTROPINE MESYLATE (1 MG) 1 MG TABLET PO SCH ×2 (08:19→17:36)
[2023-11-27] MEDS: LEVOTHYROXINE SODIUM 50 MCG TABLET PO SCH (08:19)
[2023-11-27] MEDS: DIVALPROEX SODIUM 125 MG CAP.SPRINK PO SCH ×2 (08:19→17:36)
[2023-11-27] MEDS: OLANZAPINE 2.5 MG TABLET PO SCH ×4 (08:19→21:45)
[2023-11-27] MEDS: Z GUARD REMEDY 4 OZ OINT TP SCH ×2 (08:20→20:44)
[2023-11-27] MEDS: PROSOURCE / PROSTAT (PYXIS) 30 ML UDC PO SCH (08:20)
[2023-11-27 16:00] VITALS: BP 104/74; TEMP 98.6; O2SAT 96
[2023-11-27 20:00] VITALS: BP 112/65; TEMP 98.4; O2SAT 95
[2023-11-28 08:00] VITALS: BP 103/80; TEMP 97.9; O2SAT 97
[2023-11-28] MEDS: LEVOTHYROXINE SODIUM 50 MCG TABLET PO SCH (08:31)
[2023-11-28] MEDS: OLANZAPINE 2.5 MG TABLET PO SCH ×4 (08:32→21:13)
[2023-11-28] MEDS: PROSOURCE / PROSTAT (PYXIS) 30 ML UDC PO SCH (08:32)
[2023-11-28] MEDS: BENZTROPINE MESYLATE (1 MG) 1 MG TABLET PO SCH ×2 (08:32→16:14)
[2023-11-28] MEDS: Z GUARD REMEDY 4 OZ OINT TP SCH ×2 (08:32→21:12)
[2023-11-28] MEDS: DIVALPROEX SODIUM 125 MG CAP.SPRINK PO SCH ×2 (08:32→16:14)
[2023-11-28] MEDS: DOCUSATE SODIUM 100 MG CAPSULE PO SCH ×2 (08:32→16:14)
[2023-11-28] MEDS: MULTIVITAMINS,THERAGRAN 1 UDTAB TABLET PO SCH (08:32)
[2023-11-28 16:00] VITALS: BP 103/70; TEMP 97.9; O2SAT 96
[2023-11-28 20:59] VITALS: BP 91/65; TEMP 97.9; O2SAT 95
[2023-11-29 08:00] VITALS: BP 100/63; TEMP 98.7; O2SAT 98
[2023-11-29] MEDS: OLANZAPINE 2.5 MG TABLET PO SCH ×2 (08:12→13:33)
[2023-11-29] MEDS: BENZTROPINE MESYLATE (1 MG) 1 MG TABLET PO SCH (08:12)
[2023-11-29] MEDS: DOCUSATE SODIUM 100 MG CAPSULE PO SCH (08:12)
[2023-11-29] MEDS: DIVALPROEX SODIUM 125 MG CAP.SPRINK PO SCH (08:13)
[2023-11-29] MEDS: Z GUARD REMEDY 4 OZ OINT TP SCH (08:13)
[2023-11-29] MEDS: MULTIVITAMINS,THERAGRAN 1 UDTAB TABLET PO SCH (08:13)
[2023-11-29] MEDS: LEVOTHYROXINE SODIUM 50 MCG TABLET PO SCH (08:13)
[2023-11-29] MEDS: PROSOURCE / PROSTAT (PYXIS) 30 ML UDC PO SCH (08:13)
[2023-11-30 12:11] LABS: METHYLMALONIC ACID 117 nmol/L (0-378)
== END 2023-11-29 16:40 | DRG 885 ==
LOC: ER 23:59 → GPS 11-20 08:06
PROVIDERS: ADMIT Psychiatry & Neurology Psychosomatic Medicine; ATTEND Nurse Practitioner Acute Care
DX: F25.0 Schizoaffective disorder, bipolar type (principal); G93.41 Metabolic encephalopathy; D68.59 Other primary thrombophilia; G10 Huntington's disease; F06.71 Mild neurocognitive disorder due to known physiological condition with behavioral disturbance; E44.0 Moderate protein-calorie malnutrition; G91.2 (Idiopathic) normal pressure hydrocephalus; F29 Unspecified psychosis not due to a substance or known physiological condition; E03.9 Hypothyroidism, unspecified; Z86.16 Personal history of COVID-19; Z79.890 Hormone replacement therapy; Z79.899 Other long term (current) drug therapy; Z87.440 Personal history of urinary (tract) infections; E88.09 Other disorders of plasma-protein metabolism, not elsewhere classified; Z86.39 Personal history of other endocrine, nutritional and metabolic disease; Z73.6 Limitation of activities due to disability
CPT/HCPCS: 36415; 70450-TC; 80053-TC; 80061-TC; 81001; 82565-TC; 82607-TC; 83921; 84439-TC; 84443-TC; 84484-TC; 85025-TC; 87081-TC; 97110-TC; 97112-TC; 97116-TC; 97530-TC

== ENCOUNTER 2024-06-20 13:59 | Inpatient (IN) | payer MEDICARE, OTHER ==
[~2024-06-20] VITALS: Ht 167.6 cm; Wt 59.9 kg
[~2024-06-20 13:59] MED LIST changes: +AMIN30LI27 PO; -BENZ0.5T43 PO; -DIVA-78 PO; -DIVA125T32 PO; +MAGN400O6 PO; -OLAN5TAB3 PO; -OLAN7.5T3 PO
[2024-06-20] MEDS: IV NS 0.9% 1,000 ML BAG IV ONE ×2 (14:00→17:29)
[2024-06-20 15:40] LABS: BASOPHILS # (AUTO) 0.1 K/uL (0.0-0.2); BASOPHILS % (AUTO) 0.7 % (0.0-2.0); EOSINOPHILS # (AUTO) 0.2 K/uL (0.0-0.7); HEMATOCRIT 41 % (33-45); HEMOGLOBIN 13.4 g/dL (11.5-14.8); LYMPHOCYTES % (AUTO) 42.1 % (20.0-44.0); MEAN CORPUSCULAR HEMOGLOBIN 29 PG (26.0-33.0); MEAN CORPUSCULAR HGB CONC 33 g/dl (31.0-36.0); MEAN CORPUSCULAR VOLUME 90 fL (82-100); MONOCYTES # (AUTO) 1.1 K/uL (0.1-1.30); MONOCYTES % (AUTO) 11.8 % (2.0-12.0); NEUTROPHILS # (AUTO) 4.1 K/uL (1.8-8.9); NEUTROPHILS % (AUTO) 43.4 % (43.0-81.0); PLATELET COUNT (AUTO) 212 K/uL (150-450); RED BLOOD CELL COUNT(AUTO) 4.57 MIL/uL (4.0-5.2); RED CELL DISTRIBUTION WIDTH 13.8 % (11.5-15.0); WHITE BLOOD COUNT (AUTO) 9.5 K/uL (4.3-11.0)
[2024-06-20 16:29] LABS: APPEARANCE,URINE CLEAR (CLEAR); BILIRUBIN,URINE NEGATIVE (NEGATIVE); BLOOD, URINE NEGATIVE Ery/uL (NEGATIVE); COLOR,URINE YELLOW (YELLOW); KETONES,URINE NEGATIVE (NEGATIVE); LEUKOCYTE ESTERASE ,URINE TRACE (NEGATIVE); NITRITE, URINE NEGATIVE (NEGATIVE); PROTEIN,URINE NEGATIVE (NEGATIVE); UGLUCOSE NEGATIVE (NEGATIVE); UROBILINOGEN,URINE 0.2 EU/dL (0.2)
[2024-06-20 16:34] LABS: CARBON DIOXIDE 23 mmol/L (21-32); CHLORIDE 105 mmol/L (98-107); CREATININE 0.7 mg/dL (0.6-1.3); GLUCOSE 121 mg/dL (74-106); POTASSIUM 4.2 mmol/L (3.5-5.1); SODIUM SERUM 138 mmol/L (136-145); UREA NITROGEN, BLOOD 23 mg/dL (7-18)
[2024-06-20 16:37] LABS: ALANINE AMINOTRANSFERASE 21 U/L (12-78); ALBUMIN 2.7 g/dL (3.4-5.0); ALKALINE PHOSPHATASE 117 U/L (46-116); ASPARTATE AMINOTRANSFERASE 22 U/L (15-37); BILIRUBIN,TOTAL 0.1 mg/dL (0.2-1.0); TOTAL PROTEIN, SERUM 7.2 g/dL (6.4-8.2)
[2024-06-20 16:49] LABS: ADD URINE CULTURE YES; BACTERIA,URINE 1+ /HPF (None Seen); MUCUS,URINE Few /LPF (None Seen); RBC,URINE 0-2 /HPF (0-2); SQUAMOUS EPITHELIAL CELL,UR 0-2 /HPF (None Seen)
[2024-06-20] MEDS ORDERED: OLAN7.5T3 PO (17:17)
[2024-06-20] MEDS ORDERED: OLAN2.5T3 PO (17:17)
[2024-06-20] MEDS ORDERED: BENZ0.5T43 PO (17:17)
[2024-06-20] MEDS ORDERED: DIVA125C5 PO (17:17)
[2024-06-20] MEDS ORDERED: CEFTRIAXONE 1GM BAG (ER ONLY) 50 ML IV ONE (17:37)
[2024-06-20] MEDS: CEFTRIAXONE 1 G in IV D5W 50 ML IV ONE (17:37)
[2024-06-20 20:00] VITALS: BP 100/70; TEMP 97.9; O2SAT 95
[2024-06-20] MEDS ORDERED: ONDANSETRON HCL/PF 4 MG/2 ML VIAL IVP PRN (21:00)
[2024-06-20] MEDS ORDERED: ACETAMINOPHEN 325 MG TABLET PO PRN (21:00)
[2024-06-20] MEDS: ENOXAPARIN SODIUM 40 MG/0.4 ML DISP.SYRIN SQ SCH (21:16)
[2024-06-20] MEDS: IV NS 0.9% 1,000 ML IV PRN (21:35)
[2024-06-21] VITALS: BP 102/76; TEMP 97.7; O2SAT 95
[2024-06-21 04:00] VITALS: BP 110/80; TEMP 97.7; O2SAT 95
[2024-06-21 08:00] VITALS: BP 104/77; TEMP 98.2; O2SAT 97
[2024-06-21 16:00] VITALS: BP 100/73; TEMP 97.7; O2SAT 98
[2024-06-21] MEDS: CEFTRIAXONE 1 G in IV D5W 50 ML IV SCH (16:08)
[2024-06-21 17:59] LABS: BASOPHILS # (AUTO) 0.1 K/uL (0.0-0.2); BASOPHILS % (AUTO) 0.6 % (0.0-2.0); EOSINOPHILS # (AUTO) 0.1 K/uL (0.0-0.7); EOSINOPHILS % (AUTO) 0.8 % (0.0-6.0); HEMATOCRIT 39 % (33-45); HEMOGLOBIN 13.1 g/dL (11.5-14.8); LYMPHOCYTES # (AUTO) 2.5 K/uL (0.8-4.8); LYMPHOCYTES % (AUTO) 29.3 % (20.0-44.0); MEAN CORPUSCULAR HEMOGLOBIN 29 PG (26.0-33.0); MEAN CORPUSCULAR HGB CONC 33 g/dl (31.0-36.0); MEAN CORPUSCULAR VOLUME 88 fL (82-100); MONOCYTES # (AUTO) 0.8 K/uL (0.1-1.30); MONOCYTES % (AUTO) 9.6 % (2.0-12.0); NEUTROPHILS # (AUTO) 5.2 K/uL (1.8-8.9); NEUTROPHILS % (AUTO) 59.7 % (43.0-81.0); PLATELET COUNT (AUTO) 232 K/uL (150-450); RED BLOOD CELL COUNT(AUTO) 4.43 MIL/uL (4.0-5.2); RED CELL DISTRIBUTION WIDTH 13.4 % (11.5-15.0); WHITE BLOOD COUNT (AUTO) 8.6 K/uL (4.3-11.0)
[2024-06-21 18:33] LABS: CALCIUM, SERUM 8.9 mg/dL (8.5-10.1); CREATININE 0.6 mg/dL (0.6-1.3); MAGNESIUM 2.1 mg/dL (1.8-2.4); PHOSPHORUS 3.5 mg/dL (2.5-4.9); POTASSIUM 3.8 mmol/L (3.5-5.1)
[2024-06-21 21:00] VITALS: BP 110/66; TEMP 97.9; O2SAT 97
[2024-06-22 05:00] VITALS: BP 115/60; TEMP 98; O2SAT 96
[2024-06-22 07:04] LABS: BASOPHILS % (AUTO) 0.5 % (0.0-2.0); EOSINOPHILS # (AUTO) 0.2 K/uL (0.0-0.7); EOSINOPHILS % (AUTO) 2.5 % (0.0-6.0); HEMATOCRIT 36 % (33-45); LYMPHOCYTES # (AUTO) 3.2 K/uL (0.8-4.8); LYMPHOCYTES % (AUTO) 40.4 % (20.0-44.0); MEAN CORPUSCULAR HEMOGLOBIN 29 PG (26.0-33.0); MEAN CORPUSCULAR HGB CONC 34 g/dl (31.0-36.0); MEAN CORPUSCULAR VOLUME 88 fL (82-100); MONOCYTES # (AUTO) 0.8 K/uL (0.1-1.30); NEUTROPHILS # (AUTO) 3.7 K/uL (1.8-8.9); NEUTROPHILS % (AUTO) 46.6 % (43.0-81.0); PLATELET COUNT (AUTO) 227 K/uL (150-450); RED BLOOD CELL COUNT(AUTO) 4.08 MIL/uL (4.0-5.2); RED CELL DISTRIBUTION WIDTH 13.1 % (11.5-15.0)
[2024-06-22 07:34] LABS: CALCIUM, SERUM 8.6 mg/dL (8.5-10.1); CREATININE 0.6 mg/dL (0.6-1.3); PHOSPHORUS 3.7 mg/dL (2.5-4.9); POTASSIUM 3.8 mmol/L (3.5-5.1)
[2024-06-22 16:00] VITALS: BP 97/80; TEMP 98.4; O2SAT 96
[2024-06-22 21:48] VITALS: BP 140/75; TEMP 98.6; O2SAT 98
[2024-06-23 06:43] VITALS: BP 140/75; TEMP 98.6; O2SAT 98
[2024-06-23] MEDS ORDERED: CEPH-570 PO (09:16)
[2024-06-23 13:00] VITALS: BP 99/69; TEMP 97.8; O2SAT 98
== END 2024-06-23 15:04 | DRG 689 ==
LOC: ER 14:03 → TELE1 17:50 → MEDSG1 06-21 10:10
PROVIDERS: ADMIT Nurse Practitioner Acute Care; ATTEND Nurse Practitioner Acute Care
DX: N39.0 Urinary tract infection, site not specified (principal); G93.41 Metabolic encephalopathy; G10 Huntington's disease; E44.0 Moderate protein-calorie malnutrition; N17.9 Acute kidney failure, unspecified; R62.7 Adult failure to thrive; E03.9 Hypothyroidism, unspecified; E88.09 Other disorders of plasma-protein metabolism, not elsewhere classified; B96.89 Other specified bacterial agents as the cause of diseases classified elsewhere; Z68.21 Body mass index [BMI] 21.0-21.9, adult; F20.9 Schizophrenia, unspecified; Z66 Do not resuscitate
CPT/HCPCS: 36415; 71045-TC; 80048-TC; 80076-TC; 81001; 82962-TC; 83605-TC; 83735-TC; 84100-TC; 84484-TC; 85025-TC; 87040-TC; 87081-TC; 92526; 92611-TC; A4223; G0378; J0696; J1650; J3490; J7030; J7060

== ENCOUNTER 2024-12-08 19:11 | Inpatient (IN) | payer MEDICARE, OTHER ==
[~2024-12-08] VITALS: Ht 160 cm; Wt 58.5 kg
[~2024-12-08 19:11] MED LIST changes: -AMIN30LI27 PO; +BENZ0.5T43 PO; +CEPH-570 PO; +DIVA125C5 PO; +OLAN2.5T3 PO; +OLAN7.5T3 PO
[2024-12-08 20:00] LABS: BASOPHILS % (AUTO) 0.4 % (0.0-2.0); EOSINOPHILS # (AUTO) 0.1 K/uL (0.0-0.7); EOSINOPHILS % (AUTO) 1.4 % (0.0-6.0); HEMATOCRIT 39 % (33-45); HEMOGLOBIN 12.9 g/dL (11.5-14.8); LYMPHOCYTES # (AUTO) 4.4 K/uL (0.8-4.8); LYMPHOCYTES % (AUTO) 42.1 % (20.0-44.0); MEAN CORPUSCULAR HEMOGLOBIN 29 PG (26.0-33.0); MEAN CORPUSCULAR HGB CONC 33 g/dl (31.0-36.0); MEAN CORPUSCULAR VOLUME 87 fL (82-100); MONOCYTES # (AUTO) 1.2 K/uL (0.1-1.30); MONOCYTES % (AUTO) 11.5 % (2.0-12.0); NEUTROPHILS # (AUTO) 4.7 K/uL (1.8-8.9); NEUTROPHILS % (AUTO) 44.6 % (43.0-81.0); PLATELET COUNT (AUTO) 302 K/uL (150-450); RED BLOOD CELL COUNT(AUTO) 4.46 MIL/uL (4.0-5.2); WHITE BLOOD COUNT (AUTO) 10.5 K/uL (4.3-11.0)
[2024-12-08] MEDS: IV NS 0.9% 500 ML BAG IV ONE (20:03)
[2024-12-08 20:30] LABS: SERUM AMMONIA 12 umol/L (11-32)
[2024-12-08 20:37] LABS: ALANINE AMINOTRANSFERASE 21 U/L (12-78); ALBUMIN 3.1 g/dL (3.4-5.0); ALKALINE PHOSPHATASE 106 U/L (46-116); ASPARTATE AMINOTRANSFERASE 11 U/L (15-37); BILIRUBIN,TOTAL 0.1 mg/dL (0.2-1.0); CARBON DIOXIDE 27 mmol/L (21-32); CHLORIDE 107 mmol/L (98-107); CREATININE 0.7 mg/dL (0.6-1.3); GLUCOSE 107 mg/dL (74-106); LIPASE 45 U/L (16-77); POTASSIUM 3.9 mmol/L (3.5-5.1); SODIUM SERUM 144 mmol/L (136-145); UREA NITROGEN, BLOOD 15 mg/dL (7-18)
[2024-12-08] MEDS ORDERED: ACETAMINOPHEN 325 MG TABLET PO PRN (22:00)
[2024-12-08] MEDS ORDERED: MAG HYDROX/AL HYDROX/SIMETH 30 ML UDC PO PRN (22:00)
[2024-12-08] MEDS ORDERED: MAGNESIUM HYDROXIDE 30 ML UDC PO PRN (22:00)
[2024-12-08] MEDS ORDERED: Z GUARD REMEDY 4 OZ OINT TP PRN (22:00)
[2024-12-08] MEDS ORDERED: ONDANSETRON HCL/PF 4 MG/2 ML VIAL IVP PRN (22:00)
[2024-12-09] MEDS: IV NS 0.9% 1,000 ML IV PRN (03:10)
[2024-12-09 04:00] VITALS: BP 96/62; TEMP 97.5; O2SAT 97
[2024-12-09 06:35] LABS: BASOPHILS % (AUTO) 0.4 % (0.0-2.0); EOSINOPHILS # (AUTO) 0.2 K/uL (0.0-0.7); EOSINOPHILS % (AUTO) 1.4 % (0.0-6.0); HEMATOCRIT 37 % (33-45); HEMOGLOBIN 12.4 g/dL (11.5-14.8); LYMPHOCYTES # (AUTO) 3.7 K/uL (0.8-4.8); LYMPHOCYTES % (AUTO) 35.6 % (20.0-44.0); MEAN CORPUSCULAR HEMOGLOBIN 29 PG (26.0-33.0); MEAN CORPUSCULAR HGB CONC 33 g/dl (31.0-36.0); MEAN CORPUSCULAR VOLUME 86 fL (82-100); MONOCYTES # (AUTO) 1.1 K/uL (0.1-1.30); MONOCYTES % (AUTO) 10.3 % (2.0-12.0); NEUTROPHILS # (AUTO) 5.5 K/uL (1.8-8.9); NEUTROPHILS % (AUTO) 52.3 % (43.0-81.0); PLATELET COUNT (AUTO) 302 K/uL (150-450); RED BLOOD CELL COUNT(AUTO) 4.31 MIL/uL (4.0-5.2); RED CELL DISTRIBUTION WIDTH 14.3 % (11.5-15.0); WHITE BLOOD COUNT (AUTO) 10.5 K/uL (4.3-11.0)
[2024-12-09 06:55] LABS: BILIRUBIN,TOTAL 0.2 mg/dL (0.2-1.0); CREATININE 0.5 mg/dL (0.6-1.3); MAGNESIUM 2.2 mg/dL (1.8-2.4); PHOSPHORUS 3.7 mg/dL (2.5-4.9); POTASSIUM 3.7 mmol/L (3.5-5.1); TOTAL PROTEIN, SERUM 6.8 g/dL (6.4-8.2)
[2024-12-09] MEDS: LEVOTHYROXINE SODIUM 50 MCG TABLET PO SCH (07:30)
[2024-12-09 08:00] VITALS: BP 95/62; TEMP 97.7; O2SAT 100
[2024-12-09] MEDS: DOCUSATE SODIUM 100 MG CAPSULE PO SCH (08:37)
[2024-12-09] MEDS: MULTIVITAMINS,THERAGRAN 1 UDTAB TABLET PO SCH (08:37)
[2024-12-09] MEDS: BENZTROPINE MESYLATE (1 MG) 1 MG TABLET PO SCH (08:37)
[2024-12-09] MEDS: DIVALPROEX SODIUM 125 MG CAP.SPRINK PO SCH (08:37)
[2024-12-09 16:00] VITALS: BP 97/41; TEMP 97.9; O2SAT 94
[2024-12-09 17:44] LABS: APPEARANCE,URINE CLEAR (CLEAR); BILIRUBIN,URINE NEGATIVE (NEGATIVE); BLOOD, URINE NEGATIVE Ery/uL (NEGATIVE); COLOR,URINE YELLOW (YELLOW); KETONES,URINE NEGATIVE (NEGATIVE); LEUKOCYTE ESTERASE ,URINE NEGATIVE (NEGATIVE); NITRITE, URINE NEGATIVE (NEGATIVE); PH,URINE 6.5 (5.0-8.0); PROTEIN,URINE NEGATIVE (NEGATIVE); UGLUCOSE NEGATIVE (NEGATIVE); UROBILINOGEN,URINE 0.2 EU/dL (0.2)
[2024-12-09 20:00] VITALS: BP 96/69; TEMP 97.7; O2SAT 96
[2024-12-09] MEDS: OLANZAPINE 2.5 MG TABLET PO SCH (21:44)
[2024-12-10 07:43] LABS: CALCIUM, SERUM 8.6 mg/dL (8.5-10.1); CREATININE 0.5 mg/dL (0.6-1.3); POTASSIUM 4.6 mmol/L (3.5-5.1)
[2024-12-10 08:00] VITALS: BP 94/66; TEMP 97.3; O2SAT 99
[2024-12-10 08:11] LABS: BASOPHILS % (AUTO) 0.4 % (0.0-2.0); EOSINOPHILS # (AUTO) 0.1 K/uL (0.0-0.7); EOSINOPHILS % (AUTO) 1.7 % (0.0-6.0); HEMATOCRIT 40 % (33-45); HEMOGLOBIN 13.2 g/dL (11.5-14.8); LYMPHOCYTES # (AUTO) 2.4 K/uL (0.8-4.8); LYMPHOCYTES % (AUTO) 32.5 % (20.0-44.0); MEAN CORPUSCULAR HEMOGLOBIN 30 PG (26.0-33.0); MEAN CORPUSCULAR HGB CONC 34 g/dl (31.0-36.0); MEAN CORPUSCULAR VOLUME 89 fL (82-100); MONOCYTES # (AUTO) 0.9 K/uL (0.1-1.30); MONOCYTES % (AUTO) 12.3 % (2.0-12.0); NEUTROPHILS # (AUTO) 3.9 K/uL (1.8-8.9); NEUTROPHILS % (AUTO) 53.1 % (43.0-81.0); PLATELET COUNT (AUTO) 266 K/uL (150-450); RED BLOOD CELL COUNT(AUTO) 4.45 MIL/uL (4.0-5.2); RED CELL DISTRIBUTION WIDTH 14.5 % (11.5-15.0); WHITE BLOOD COUNT (AUTO) 7.4 K/uL (4.3-11.0)
[2024-12-10] MEDS: IV D5/ 0.9% NACL 1,000 ML IV PRN (11:28)
[2024-12-10 16:00] VITALS: BP 82/42; TEMP 98.1; O2SAT 95
[2024-12-10 20:00] VITALS: BP 133/64; TEMP 98.2; O2SAT 96
[2024-12-11 02:22] VITALS: BP 133/64; TEMP 96; O2SAT 96
[2024-12-11 02:36] VITALS: BP 133/64; TEMP 97.3; O2SAT 96
[2024-12-11 07:27] LABS: BASOPHILS % (AUTO) 0.3 % (0.0-2.0); EOSINOPHILS # (AUTO) 0.1 K/uL (0.0-0.7); HEMATOCRIT 36 % (33-45); HEMOGLOBIN 12.1 g/dL (11.5-14.8); LYMPHOCYTES # (AUTO) 2.6 K/uL (0.8-4.8); LYMPHOCYTES % (AUTO) 27.8 % (20.0-44.0); MEAN CORPUSCULAR HEMOGLOBIN 30 PG (26.0-33.0); MEAN CORPUSCULAR HGB CONC 34 g/dl (31.0-36.0); MEAN CORPUSCULAR VOLUME 87 fL (82-100); MONOCYTES # (AUTO) 0.8 K/uL (0.1-1.30); NEUTROPHILS # (AUTO) 5.8 K/uL (1.8-8.9); NEUTROPHILS % (AUTO) 61.9 % (43.0-81.0); PLATELET COUNT (AUTO) 264 K/uL (150-450); RED BLOOD CELL COUNT(AUTO) 4.11 MIL/uL (4.0-5.2); RED CELL DISTRIBUTION WIDTH 13.8 % (11.5-15.0); WHITE BLOOD COUNT (AUTO) 9.4 K/uL (4.3-11.0)
[2024-12-11 07:57] LABS: CALCIUM, SERUM 8.2 mg/dL (8.5-10.1); CREATININE 0.5 mg/dL (0.6-1.3); PHOSPHORUS 3.4 mg/dL (2.5-4.9); POTASSIUM 3.3 mmol/L (3.5-5.1)
[2024-12-11 08:00] VITALS: BP 93/70; TEMP 97.5; O2SAT 99
[2024-12-11] MEDS ORDERED: POTASSIUM CL. PREMIX PERIPHER. 50 ML IV SCH (10:00)
[2024-12-11] MEDS ORDERED: ANESTHESIA TRAY IN PYXIS 1 EA TRAY MC ONE (15:12)
[2024-12-11 16:00] VITALS: BP 106/73; TEMP 97.3; O2SAT 97
[2024-12-11 20:00] VITALS: BP 102/65; TEMP 97.6; O2SAT 97
[2024-12-12 07:00] VITALS: BP 151/129; TEMP 97.7; O2SAT 100
[2024-12-12 07:31] LABS: BASOPHILS # (AUTO) 0.1 K/uL (0.0-0.2); BASOPHILS % (AUTO) 0.7 % (0.0-2.0); EOSINOPHILS # (AUTO) 0.1 K/uL (0.0-0.7); EOSINOPHILS % (AUTO) 1.5 % (0.0-6.0); HEMATOCRIT 42 % (33-45); HEMOGLOBIN 13.2 g/dL (11.5-14.8); LYMPHOCYTES % (AUTO) 36.1 % (20.0-44.0); MEAN CORPUSCULAR HEMOGLOBIN 29 PG (26.0-33.0); MEAN CORPUSCULAR HGB CONC 32 g/dl (31.0-36.0); MEAN CORPUSCULAR VOLUME 91 fL (82-100); MONOCYTES # (AUTO) 0.9 K/uL (0.1-1.30); MONOCYTES % (AUTO) 11.3 % (2.0-12.0); NEUTROPHILS # (AUTO) 4.2 K/uL (1.8-8.9); NEUTROPHILS % (AUTO) 50.4 % (43.0-81.0); PLATELET COUNT (AUTO) 205 K/uL (150-450); RED BLOOD CELL COUNT(AUTO) 4.55 MIL/uL (4.0-5.2); RED CELL DISTRIBUTION WIDTH 14.5 % (11.5-15.0); WHITE BLOOD COUNT (AUTO) 8.4 K/uL (4.3-11.0)
[2024-12-12 07:49] LABS: CALCIUM, SERUM 8.1 mg/dL (8.5-10.1); CREATININE 0.5 mg/dL (0.6-1.3); POTASSIUM 3.7 mmol/L (3.5-5.1)
[2024-12-12 16:00] VITALS: BP 111/69; TEMP 98.2; O2SAT 99
[2024-12-12 20:00] VITALS: BP 106/70; TEMP 97.9; O2SAT 95
[2024-12-12 20:42] VITALS: BP 106/70; TEMP 97.9; O2SAT 95
[2024-12-13 07:00] VITALS: BP 74/45; TEMP 97.7; O2SAT 97
== END 2024-12-13 15:20 | DRG 640 ==
LOC: ER 19:13 → MED 23:24
PROVIDERS: ADMIT Nurse Practitioner Acute Care; ATTEND Internal Medicine
DX: E86.0 Dehydration (principal); G93.41 Metabolic encephalopathy; E44.0 Moderate protein-calorie malnutrition; G10 Huntington's disease; R62.7 Adult failure to thrive; E03.9 Hypothyroidism, unspecified; E88.09 Other disorders of plasma-protein metabolism, not elsewhere classified; F20.9 Schizophrenia, unspecified; I10 Essential (primary) hypertension; J44.9 Chronic obstructive pulmonary disease, unspecified; Z66 Do not resuscitate; Z87.440 Personal history of urinary (tract) infections; R53.1 Weakness; R13.10 Dysphagia, unspecified; Z68.22 Body mass index [BMI] 22.0-22.9, adult
CPT/HCPCS: 36415; 71045-TC; 80048-TC; 80053-TC; 80076-TC; 82140-TC; 82962-TC; 83690-TC; 83735-TC; 84100-TC; 84484-TC; 85025-TC; 92526; 92611-TC; A4223; G0378; J7030; J7040; J7042